=== PATIENT | male | born 1945 | race Caucasian/White ===

== ENCOUNTER → 2017-07-11 | Outpatient (CLI) | payer OTHER ==
[~2017-07-11] MED LIST: CHLORHEXIDINE GLUCONATE 2 % 1 PACK (2 CLOTHS) TOPICAL PRN; GLYCOPYRROLATE 1 MG/5 ML SYRINGE IV PUSH ONE; INSULIN HUMAN REGULAR 1,000 UNITS/10 ML VIAL SQ PRN; LACTATED RINGER'S 1000 ML IV PRN; LIDOCAINE HCL 1% PF 5 ML AMPULE OTHER ONE; METOPROLOL TARTRATE 25 MG TAB PO PRN; POVIDONE IODINE 5% (ANTISEPSIS KIT) 4 APPLICATIONS EACH NARE PRN; PROPOFOL 200 MG/20 ML AMP IV ONE; RANI150T PO; SODIUM CHLORID 0.9% 500 ML IV PRN; TERA10CA3 PO
[2017-07-11 06:41] VITALS: BP 129/73; PULSE 61; RESP 20; TEMP 98.1; O2SAT 93
--- NOTE | 2017-07-11 08:54 | PD.PROCEDR ---
GI Procedure PROCEDURE PERFORMED Endoscopic ultrasound INDICATION FOR PROCEDURE Submucosal antral mass PROCEDURE: The procedure, risks and benefits were discussed with Mr. Johnson and informed consent was obtained. Anesthesia sedated him with Diprivan. He was placed in the left lateral decubitus position. Endoscopic ultrasound: The Pentax videoscope was introduced through the oropharynx and advanced to the stomach. FINDINGS: There was a second layer originating hyperechoic mass measuring 12 x 18 mm this had the appearance of a lipoma No lymphadenopathy noted ESTIMATED BLOOD LOSS: None SPECIMENS REMOVED: None COMPLICATIONS: None IMPRESSION: Lipoma PLAN: Follow-up when necessary Chadwick Rodrigez MD Jul 11, 2017 08:54
[2017-07-11 09:25] VITALS: BP 121/69; PULSE 69; RESP 16; TEMP 97.9; O2SAT 97
--- NOTE | 2017-07-11 16:42 | EKG ---
Date Performed: 07/11/2017 Time Performed: 06:47:34 PTAGE: 71 years EKG: Sinus rhythm WITH FIRST DEGREE AV BLOCK LOW QRS VOLTAGE IN PRECORDIAL LEADS INCOMPLETE RIGHT BUNDLE BRANCH BLOCK Compared to prior tracing no significant change ABNORMAL ECG PREVIOUS TRACING : 11/03/2009 09.00 DOCTOR: Cristy Garcia Interpretating Date/Time 07/11/2017 16:39:34
== END ==
LOC: HSDC 06:01
PROVIDERS: ATTEND Internal Medicine Gastroenterology
DX: K31.89 Other diseases of stomach and duodenum (principal); K21.9 Gastro-esophageal reflux disease without esophagitis; R94.31 Abnormal electrocardiogram [ECG] [EKG]
CPT/HCPCS: 00740; 43259; 93005; J7120